=== PATIENT | male | born 1985 | race Caucasian/White ===

== ENCOUNTER 2025-04-26 09:00 | Outpatient (REF) | payer OTHER, SELFPAY ==
--- NOTE | ~2025-04-26 | XR_ITS ---
EXAMINATION: XR SACRUM COCCYX 2 OR MORE VIEWS HISTORY: M54.16 - Radiculopathy, lumbar region COMPARISON: There are no prior studies available for comparison. FINDINGS: Three views of the sacrum and coccyx are submitted. Osseous mineralization is normal. There is no fracture or lytic lesion.. XR/XR sacrum coccyx min 2V IMPRESSION: Unremarkable examination of the sacrum and coccyx. Electronically signed by: Easton Blunt MD 04/26/2025 11:21 AM EDT
--- NOTE | ~2025-04-26 | XR_ITS ---
EXAMINATION: XR PELVIS 1-2 VIEWS, XR HIP 2 OR MORE VIEWS LEFT HISTORY: M54.16 - Radiculopathy, lumbar region COMPARISON: There are no prior studies available for comparison. FINDINGS: A single AP view of the pelvis and two views of the left hip are submitted. Osseous mineralization is normal. There is no fracture or dislocation. The joint spaces are maintained. The soft tissues are unremarkable. XR/XR pelvis 1-2V IMPRESSION: Unremarkable examination of the left pelvis. Electronically signed by: Easton Blunt MD 04/26/2025 11:19 AM EDT
--- NOTE | ~2025-04-26 | XR_ITS ---
EXAMINATION: XR PELVIS 1-2 VIEWS, XR HIP 2 OR MORE VIEWS LEFT HISTORY: M54.16 - Radiculopathy, lumbar region COMPARISON: There are no prior studies available for comparison. FINDINGS: A single AP view of the pelvis and two views of the left hip are submitted. Osseous mineralization is normal. There is no fracture or dislocation. The joint spaces are maintained. The soft tissues are unremarkable. XR/XR hip LT min 2V IMPRESSION: Unremarkable examination of the left pelvis. Electronically signed by: Easton Blunt MD 04/26/2025 11:19 AM EDT
--- NOTE | ~2025-04-26 | XR_ITS ---
EXAMINATION: XR THORACIC SPINE 3 VIEWS HISTORY: M54.16 - Radiculopathy, lumbar region COMPARISON: There are no prior studies available for comparison. FINDINGS: AP and lateral views of the thoracic spine are submitted. Osseous mineralization is normal. The vertebral bodies maintain normal height and alignment without evidence of fracture or subluxation. The intervertebral disc spaces are preserved. The visualized paraspinal soft tissues are unremarkable. XR/XR thoracic spine 3V IMPRESSION: Unremarkable examination of the thoracic spine. Electronically signed by: Easton Blunt MD 04/26/2025 11:22 AM EDT
== END 2025-04-26 09:01 | disposition home or self-care (01) ==
LOC: HO.HMGCX 09:00
PROVIDERS: PCP Nurse Practitioner Family; Visit Provider Nurse Practitioner Family
DX: M25.552 Pain in left hip (principal); M54.16 Radiculopathy, lumbar region; M54.6 Pain in thoracic spine; M54.2 Cervicalgia; R10.20 Pelvic and perineal pain unspecified side; V89.2XXA Person injured in unspecified motor-vehicle accident, traffic, initial encounter; Y93.9 Activity, unspecified; Y92.9 Unspecified place or not applicable; Y99.8 Other external cause status
CPT/HCPCS: 72072; 72170; 72220; 73502; 96127

== ENCOUNTER 2025-04-26 09:00 | Outpatient (AMB) | payer OTHER, SELFPAY ==
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
[2025-04-26 09:07] VITALS: BP 136/80; PULSE 82; RESP 13; TEMP 36.2; O2SAT 96; BMI 32.0
--- OUTSIDE RECORDS SUMMARY | 2025-04-26 09:35 | XMS_ITS | Clinical Summary ---
Author Organization [facility] Address [address] [place] [phone] Phone Care Team Providers Care Ham Marker Name Role Phone Raciel Estrada MD Primary Care Provider Pcp, Unknown Unavailable Unavailable Allergies No known active allergies Medications rizatriptan (MAXALT) 10 MG tabletIndication s:Intractable chronic migraine with aura with status migrainosus Take 1 tablet (10 mg total) by mouth as needed for migraine. May repeat in 2 hours if needed. Do not exceed 20mg in a day. 9 tablet 11 10/12/2024 Active Social History Tobacco Use Types Packs/Day Years Used Date Smoking Tobacco: Never Assessed Education Answer Date Recorded Are you interested in more education? Not on fili e 12/27/2023 Are you concerned about learning? Not on file 12/27/2023 No 12/27/2023 No 12/27/2023 Digital Access Answer Date Recorded No 12/27/2023 No 12/27/2023 Reliable internet access at home? Not on file 12/27/2023 Device with a working camera? Not on file Sex and Gender Information Value Date Recorded Sex Assigned at Male 12/26/2023 2:54 PM EDT Legal Sex Male 2:51 PM EDT Gender Identity Male 12/26/2023 2:54 PM EDT Sexual Orientation Straight 12/26/2023 2: 54 PM EDT Last Filed Vital Signs Vital Sign Reading Time Taken Comments Blood Pressure 120/70 10/12/2024 9:05 AM EDT Pulse 81 10/12/2024 9:05 AM EDT Temperature - - Respiratory Rate - - Oxygen Saturation 97% 10/12/2024 9:05 AM EDT Inhaled Oxygen Concentration - - Weight - - Height 173 cm (5' 8.11 ) 10/12/2024 9:05 AM EDT Body Mass Index - - Plan of Treatment Upcoming Encounters Date Type Department Care Team (Joy st Contact Info) Description 05/13/2025 2:00 PM EST Evaluation [facility] Audiology [address] [address] Fang Gresham MD [address] [place], [place] [id number] [email or web address] [phone] [email or web address] 05/13/2025 3:00 PM EST Office Visit [facility] Otology [address] [address] Fang Gresham MD [address] [place] [address] [phone] [email or web address] 05/27/2025 2:00 PM EST Office Visit [facility] [address] [place] [address] [address] Floor, [address] [place] [address] Easton Sutherland MD, MS [address] [facility], [address] [place] [phone] [email or web address] Health Maintenance Due Date Last Done Comments Adult Td,Tdap Booster 1985 LIPID PANEL 1985 DEPRESSION SCREENING 1997 SMOKING Hx and SMOKELESS TOB ACCO SCREENING 1998 HEPATITIS C SCREENING 2003 HIV ONE-TIME SCREENING (18-6 5 YEARS) 2003 INFLUENZA VACCINE (#1) 2025 COVID-19 VACCINE (2024-2 6 season) 2025 HEPATITIS A VACCINES Aged Out No long er eligible based on patient's age to complete this topic HIB VACCINES Aged Out No longer eligi ble based on patient's age to complete this topic MENINGOCOCCAL VACCINES (ACWY) Aged Out No longer eligible based on patient's age to complete this topic MENINGOCOCCAL VACCINES (B) Aged Out N o longer eligible based on patient's age to complete this topic PNEUMOCOCCAL VACCINES (0-49 years) Aged Out No longer eligible based on patient's age to complete this topic Medical Devices Not on file Insurance [employer] [place] [employer] [place] PPO [place] Care Teams Ham Marker Relationship Specialty Start Date End Date Raciel Estrada MD [address] [place] [address] PCP - General Internal Medicine 12/26/23 Pcp, Unknown 12/26/23 Additional Source Comments The information contained in this document represents components of the legal health record. It is not the complete legal health record.[facility]
--- OUTSIDE RECORDS SUMMARY | 2025-04-26 09:35 | XMS_ITS | Clinical Summary ---
Author Organization [facility] Address [address] [place] [address] Care Team Providers Care Concrete Boom Operator Name Role Phone Ref, Has No Pcp Or Primary Care Provider Unavail able Allergies No known active allergies Medications permethrin (ELIMITE) 5% cream Apply from neck down to soles of feet. Leave on for 14 hours then wash off. Repeat after 7 days. 60 g 1 10/27/2017 1:38 PM EDT 10/27/2017 Active Social History Tobacco Use Types Packs/Day Years Used Date Smoking Tobacco: Never Assessed Sex and Gender Information Value Date Recorded Sex Assigned at Not on file Legal Sex Male 1:07 PM EDT Gender Identity Not on file Sexual Orientation Not on file Last Filed Vital Signs Vital Sign Reading Time Taken Comments Blood Pressure 137/80 08/02/2020 5:30 PM EST Pulse 80 08/02/2020 5:30 PM EST Temperature 36.6 C (97.9 F) 08/02/2020 5:30 PM EST Respiratory Rate 18 08/02/2020 5:30 PM EST Oxygen Saturation 98% 08/02/2020 5:30 PM EST Inhaled Oxygen Concentration - - Weight - - Height - - Body Mass Index - - Plan of Treatment Health Maintenance Due Date Last Done Comments HIV Screening 1985 Varicella Vaccines (1 of 2 - 13+ 2-dose series) 1998 Hepatitis B Vaccines (1 of 3 - 19+ 3-dose series) 2004 DTaP,Tdap,and Td Vaccines (1 - Tdap) 2007 Alcohol/Substance Use Screening 06/27/2024 COVID-19 Vaccine (1 - 2024-2 6 season) 2025 Influenza Vaccine (#1) 2025 RSV Vaccine (60+ years old a nd patients) (1 - 1-dose 75+ series) 2060 Pneumococcal Vaccine: Pediat jessica (0-5 Years) and At-Risk Patients (6-50 Years) Aged Out No longer eligible b ased on patient's age to complete this topic Insurance [facility] Care Teams Concrete Boom Operator Relationship Specialty Start Date End Date Ref, Has No Pcp Or DO NOT EDIT THIS RECORD VIA PROVIDER ON THE FLY PCP - General Data Modeling Architect 08/02/20
== END 2025-04-26 09:39 | disposition home or self-care (01) ==
PROVIDERS: PCP Nurse Practitioner Family; Visit Provider Nurse Practitioner Family
DX: M54.16 Radiculopathy, lumbar region (principal); V89.2XXA Person injured in unspecified motor-vehicle accident, traffic, initial encounter; M54.6 Pain in thoracic spine; M25.552 Pain in left hip; M54.2 Cervicalgia; R10.20 Pelvic and perineal pain unspecified side

== ENCOUNTER → 2025-04-26 10:38 | Outpatient (BNV) | payer OTHER, SELFPAY | PROVIDERS: PCP Nurse Practitioner Family; Visit Provider Radiology Diagnostic Radiology | DX: M54.16 Radiculopathy, lumbar region (principal); V89.2XXA Person injured in unspecified motor-vehicle accident, traffic, initial encounter | CPT/HCPCS: 72072; 72220; 73502 ==